=== PATIENT | male | born 1995 | race African-American/Black ===

== ENCOUNTER 2024-05-30 22:55 | Emergency (ER) | payer OTHER ==
[2024-05-30 23:20] LABS: #Basophils 0.04 10x3/uL (0.0-0.2); %Basophils 0.9 % (0.0-1.0); %Eosinophils 1.5 % (0.0-10.0); %Lymphocytes 37.8 % (21.0-51.0); %Monocytes 12.7 % (0.0-10.0); %Neutrophils 46.9 % (42.0-75.0); Hematocrit 42.5 % (42.0-52.0); Hemoglobin 14.1 g/dL (14.0-18.0); Mean Corpuscular HGB CONC 33.2 g/dL (32.0-36.0); Mean Corpuscular Hemoglobin 29.6 pg (27.0-31.0); Mean Corpuscular Volume 89.1 fL (78.0-98.0); Mean Platelet Volume 11.9 fL (7.4-10.4); Platelet Count 177 10x3/uL (130-400); RBC Distribution Width 12.7 % (11.5-14.5); Red Blood Cell (RBC) Count 4.77 mill/uL (4.70-6.10)
[2024-05-30 23:34] LABS: ALT (SGPT) 18 U/L (8-55); AST (SGOT) 26 U/L (5-34); Albumin 3.9 g/dL (3.5-5.0); Alkaline Phosphatase 60 U/L (40-110); Anion Gap 14 mmol/L (10-20); BUN (Urea Nitrogen) 11 mg/dL (8.9-20.6); Bilirubin, Total 0.6 mg/dL (0.2-1.2); Calc. Creatinine Clearance 0 mL/min (70-130); Calcium 9.1 mg/dL (7.8-10.44); Carbon Dioxide 21 mmol/L (22-29); Chloride 112 mmol/L (98-107); Estimated GFR 82; Glucose 99 mg/dL (70-105); Lipase 39 U/L (8-78); Potassium 3.9 mmol/L (3.5-5.1); Protein, Total 6.9 g/dL (6.0-8.3); Sodium 143 mmol/L (136-145)
[2024-05-30 23:40] LABS: Troponin I Less than 0.010 ng/mL (< 0.028)
[2024-05-31] MEDS ORDERED: Morphine 4 MG/ML VIAL ONE (01:52)
[2024-05-31] MEDS ORDERED: Ondansetron PF 4 MG/2 ML Vial ONE (01:52)
[2024-05-31] MEDS ORDERED: Aspirin Chewable 81 MG TAB ONE (01:53)
== END 2024-05-31 02:40 | disposition home or self-care (01) ==
LOC: ERS 22:55
DX: R07.9 Chest pain, unspecified (principal); I48.0 Paroxysmal atrial fibrillation
CPT/HCPCS: 71045; 80053; 83690; 83880; 84484; 85025; 93005; 94760; 96374; 96375; J2272; J2405

== ENCOUNTER 2024-07-25 21:18 | Emergency (ER) | payer OTHER ==
[~2024-07-25 21:18] MED LIST: Iopamidol-370 76% 500 ML MDV (1 ML CHARGE) ONE
[2024-07-25] MEDS ORDERED: Ondansetron PF 4 MG/2 ML Vial ONE (21:43)
[2024-07-25 22:03] LABS: #Basophils Less than 0.03 10x3/uL (0.0-0.2); #Eosinophils Less than 0.03 10x3/uL (0.0-0.7); %Basophils 0.4 % (0.0-1.0); %Eosinophils 0.4 % (0.0-10.0); %Lymphocytes 14.2 % (21.0-51.0); %Monocytes 10.5 % (0.0-10.0); %Neutrophils 74.1 % (42.0-75.0); ALT (SGPT) 15 U/L (8-55); AST (SGOT) 19 U/L (5-34); Albumin 4.1 g/dL (3.5-5.0); Alkaline Phosphatase 67 U/L (40-110); Anion Gap 11 mmol/L (10-20); BUN (Urea Nitrogen) 10 mg/dL (8.9-20.6); Bilirubin, Total 0.8 mg/dL (0.2-1.2); Calc. Creatinine Clearance 0 mL/min (70-130); Calcium 9.4 mg/dL (7.8-10.44); Carbon Dioxide 26 mmol/L (22-29); Chloride 110 mmol/L (98-107); Estimated GFR 98; Globulin 2.8 g/dL (2.4-3.5); Glucose 111 mg/dL (70-105); Hematocrit 44.4 % (42.0-52.0); Hemoglobin 14.7 g/dL (14.0-18.0); Lipase 65 U/L (8-78); Mean Corpuscular HGB CONC 33.1 g/dL (32.0-36.0); Mean Corpuscular Hemoglobin 29.2 pg (27.0-31.0); Mean Corpuscular Volume 88.1 fL (78.0-98.0); Mean Platelet Volume 12.1 fL (7.4-10.4); Platelet Count 179 10x3/uL (130-400); Potassium 3.5 mmol/L (3.5-5.1); Protein, Total 6.9 g/dL (6.0-8.3); RBC Distribution Width 12.8 % (11.5-14.5); Red Blood Cell (RBC) Count 5.04 mill/uL (4.70-6.10); Sodium 143 mmol/L (136-145)
[2024-07-25 22:08] LABS: Troponin I Less than 0.010 ng/mL (< 0.028)
[2024-07-25] MEDS ORDERED: Morphine 4 MG/ML VIAL ONE (22:13)
[2024-07-25] MEDS ORDERED: Droperidol 5 MG/2 ML VIAL ONE (22:13)
[2024-07-25] MEDS ORDERED: diphenhydrAMINE 50 MG/ML VIAL ONE (22:29)
[2024-07-25] MEDS ORDERED: Famotidine/PF 20 mg/2ml Vial ONE (22:29)
[2024-07-25] MEDS ORDERED: methylPREDNISolone Sod Succ 40 MG VIAL ONE (22:29)
== END 2024-07-26 01:00 | disposition home or self-care (01) ==
LOC: ERS 21:18
DX: R10.84 Generalized abdominal pain (principal); R11.2 Nausea with vomiting, unspecified; Z79.899 Other long term (current) drug therapy; Z95.1 Presence of aortocoronary bypass graft
CPT/HCPCS: 71045; 74177; 80053; 83690; 84484; 85025; 93005; 96374; 96375; J1200; J1790; J2272; J2405; J2919; J3490; Q9967

== ENCOUNTER 2024-08-26 18:30 | Emergency (ER) | payer OTHER, SELFPAY ==
[2024-08-26] MEDS ORDERED: Ketorolac Tromethamine 30 MG (1 mL) VIAL ONE (19:35)
== END 2024-08-26 20:18 | disposition home or self-care (01) ==
LOC: ERS 18:30
DX: S93.402A Sprain of unspecified ligament of left ankle, initial encounter (principal); S93.401A Sprain of unspecified ligament of right ankle, initial encounter; X50.1XXA Overexertion from prolonged static or awkward postures, initial encounter; Z95.1 Presence of aortocoronary bypass graft
CPT/HCPCS: 96372; 99283; J1885

== ENCOUNTER 2024-10-20 23:53 | Observation (INO) | payer SELFPAY ==
[2024-10-21 00:37] LABS: ALT (SGPT) 15 U/L (8-55); AST (SGOT) 25 U/L (5-34); Alkaline Phosphatase 71 U/L (40-110); Anion Gap 13 mmol/L (10-20); BUN (Urea Nitrogen) 9 mg/dL (8.9-20.6); Bilirubin, Total 0.4 mg/dL (0.2-1.2); Calc. Creatinine Clearance 0 mL/min (70-130); Calcium 9.2 mg/dL (7.8-10.44); Carbon Dioxide 21 mmol/L (22-29); Chloride 113 mmol/L (98-107); Estimated GFR 86; Globulin 3.6 g/dL (2.4-3.5); Glucose 108 mg/dL (70-105); Potassium 4.2 mmol/L (3.5-5.1); Protein, Total 7.6 g/dL (6.0-8.3); Sodium 143 mmol/L (136-145)
[2024-10-21 00:38] LABS: Troponin I Less than 0.010 ng/mL (< 0.028)
[2024-10-21] MEDS ORDERED: methylPREDNISolone Sod Succ 40 MG VIAL ONE (00:38)
[2024-10-21] MEDS ORDERED: diphenhydrAMINE 50 MG/ML VIAL ONE (00:38)
[2024-10-21] MEDS ORDERED: Famotidine/PF 20 mg/2ml Vial ONE (00:39)
[2024-10-21 00:43] LABS: #Basophils 0.04 10x3/uL (0.0-0.2); %Eosinophils 1.2 % (0.0-10.0); %Lymphocytes 39.9 % (21.0-51.0); %Monocytes 12.5 % (0.0-10.0); %Neutrophils 45.2 % (42.0-75.0); Hematocrit 42.8 % (42.0-52.0); Mean Corpuscular HGB CONC 32.7 g/dL (32.0-36.0); Mean Corpuscular Hemoglobin 28.9 pg (27.0-31.0); Mean Corpuscular Volume 88.4 fL (78.0-98.0); Mean Platelet Volume 11.6 fL (7.4-10.4); Platelet Count 159 10x3/uL (130-400); RBC Distribution Width 12.9 % (11.5-14.5); Red Blood Cell (RBC) Count 4.84 mill/uL (4.70-6.10)
[2024-10-21] MEDS ORDERED: Aspirin Chewable 81 MG TAB ONE (03:47)
[2024-10-21] MEDS ORDERED: Ondansetron PF 4 MG/2 ML Vial IVP PRN (04:15)
[2024-10-21] MEDS ORDERED: Acetaminophen 325 MG TAB PO PRN (04:15)
[2024-10-21] MEDS ORDERED: Nitroglycerin 0.4 MG TAB (25 Tab Bottle) SL PRN (04:15)
[2024-10-21 05:49] VITALS: BMI 25.4
[2024-10-21] MEDS: Lactated Ringer's 1,000 ML IV SCH (06:04)
[2024-10-21 07:54] LABS: Troponin I Less than 0.010 ng/mL (< 0.028)
[2024-10-21 08:23] LABS: Cardiac Risk 4.4 (Less than 4.5)
[2024-10-21 08:56] VITALS: TEMP 97.6
[2024-10-21] MEDS ORDERED: Iopamidol-370 76% 500 ML MDV (1 ML CHARGE) ONE (09:27)
[2024-10-21] MEDS: Enoxaparin 40 MG (0.4 mL) SYRINGE SC SCH (09:35)
[2024-10-21] MEDS: Metoprolol Tartrate 25 MG TAB PO SCH (09:35)
[2024-10-21] MEDS ORDERED: Regadenoson 0.4 MG/5 ML SYRINGE ONE (09:59)
[2024-10-21 10:45] LABS: Troponin I 0.011 ng/mL (< 0.028)
[2024-10-21 13:28] VITALS: BP 112/76
== END 2024-10-21 15:19 | disposition home or self-care (01) ==
LOC: ERS 23:53 → OBS 10-21 04:08
PROVIDERS: ADMIT Internal Medicine; ATTEND Family Medicine
PROC: B246ZZZ Ultrasonography of Right and Left Heart (ICD-10-PCS; principal; 2024-10-21)
DX: R55 Syncope and collapse (principal); R07.9 Chest pain, unspecified; I10 Essential (primary) hypertension; E78.5 Hyperlipidemia, unspecified; I48.91 Unspecified atrial fibrillation; Z95.1 Presence of aortocoronary bypass graft; Z91.041 Radiographic dye allergy status
CPT/HCPCS: 36415; 71045; 71275; 74174; 78452; 80053; 80061; 83690; 84484; 85025; 93005; 93017; 93306; 96372; 96374; A9502; G0378; J1200; J1650; J2785; J2919; J3490; Q9967

== ENCOUNTER 2025-05-27 09:26 | Emergency (ER) | payer SELFPAY ==
[2025-05-27 10:12] LABS: #Basophils Less than 0.03 10x3/uL (0.0-0.2); #Eosinophils Less than 0.03 10x3/uL (0.0-0.7); #Monocytes 0.28 10x3/uL (0.11-0.59); #Neutrophils 1.60 10x3/uL (1.40-6.50); %Basophils 0.7 % (0.0-1.0); %Eosinophils 0.7 % (0.0-10.0); %Lymphocytes 32.6 % (21.0-51.0); %Monocytes 9.8 % (0.0-10.0); %Neutrophils 56.2 % (42.0-75.0); Hematocrit 47.8 % (42.0-52.0); Hemoglobin 15.5 g/dL (14.0-18.0); Mean Corpuscular Hemoglobin 28.1 pg (27.0-31.0); Mean Corpuscular Volume 86.8 fL (78.0-98.0); Platelet Count 202 10x3/uL (130-400); Red Blood Cell (RBC) Count 5.51 mill/uL (4.70-6.10); White Blood Cell (WBC) Count 2.85 10x3/uL (4.8-10.8)
[2025-05-27 10:29] LABS: ALT (SGPT) 17 U/L (Less than 45); AST (SGOT) 21 U/L (11-34); Albumin 4.0 g/dL (3.1-4.5); Alkaline Phosphatase 75 U/L (40-110); Anion Gap 14 mmol/L (10-20); BUN (Urea Nitrogen) 12 mg/dL (8.9-20.6); Bilirubin, Total 0.7 mg/dL (0.3-1.2); CK (CPK) 99 U/L (30-200); Calc. Creatinine Clearance 0 mL/min (70-130); Calcium 8.9 mg/dL (7.8-10.44); Carbon Dioxide 22 mmol/L (22-29); Chloride 110 mmol/L (98-107); Globulin 3.0 g/dL (2.4-3.5); Glucose 99 mg/dL (70-105); Lipase 39 U/L (8-78); Magnesium 2.0 mg/dL (1.6-2.6); Potassium 4.1 mmol/L (3.5-5.1); Sodium 142 mmol/L (136-145)
== END 2025-05-27 12:08 | disposition home or self-care (01) ==
LOC: ERS 09:26
DX: R00.2 Palpitations (principal); I48.91 Unspecified atrial fibrillation; Z79.01 Long term (current) use of anticoagulants; Z95.5 Presence of coronary angioplasty implant and graft
CPT/HCPCS: 71045; 80053; 82550; 83690; 83735; 84443; 84484; 85025; 85379; 93005; 94760

== ENCOUNTER 2025-09-14 09:53 | Inpatient (IN) | payer SELFPAY ==
[2025-09-14] MEDS ORDERED: Ondansetron PF 4 MG/2 ML Vial ONE (10:09)
[2025-09-14 10:13] LABS: #Basophils 0.04 10x3/uL (0.0-0.2); #Eosinophils 0.07 10x3/uL (0.0-0.7); #Monocytes 0.37 10x3/uL (0.11-0.59); #Neutrophils 1.57 10x3/uL (1.40-6.50); %Basophils 1.2 % (0.0-1.0); %Eosinophils 2.2 % (0.0-10.0); %Lymphocytes 36.4 % (21.0-51.0); %Monocytes 11.4 % (0.0-10.0); %Neutrophils 48.5 % (42.0-75.0); Hematocrit 45.0 % (42.0-52.0); Hemoglobin 14.7 g/dL (14.0-18.0); Mean Corpuscular Hemoglobin 28.2 pg (27.0-31.0); Mean Corpuscular Volume 86.2 fL (78.0-98.0); Platelet Count 173 10x3/uL (130-400); Red Blood Cell (RBC) Count 5.22 mill/uL (4.70-6.10); White Blood Cell (WBC) Count 3.24 10x3/uL (4.8-10.8)
[2025-09-14 10:28] LABS: Lipase 43 U/L (8-78)
[2025-09-14 10:31] LABS: Acetaminophen Less than 10 mcg/mL (Less than 10); Salicylate Less than 8.0 mg/dL (Less than 8.0)
[2025-09-14 10:32] LABS: ALT (SGPT) 16 U/L (Less than 45); AST (SGOT) 24 U/L (11-34); Albumin 4.0 g/dL (3.1-4.5); Alkaline Phosphatase 78 U/L (40-110); Anion Gap 14 mmol/L (10-20); BUN (Urea Nitrogen) 14 mg/dL (8.9-20.6); Bilirubin, Total 0.7 mg/dL (0.3-1.2); Calc. Creatinine Clearance 0 mL/min (70-130); Calcium 9.1 mg/dL (7.8-10.44); Carbon Dioxide 20 mmol/L (22-29); Chloride 112 mmol/L (98-107); Globulin 2.6 g/dL (2.4-3.5); Glucose 98 mg/dL (70-105); Potassium 4.4 mmol/L (3.5-5.1); Sodium 142 mmol/L (136-145)
[2025-09-14 11:59] LABS: Glucose, Urine (Dipstick) Negative (Negative); Leukocyte Negative (Negative); Protein, Urine (Dipstick) Negative (Neg-Trace); Specific Gravity, Urine 1.025 (1.005-1.030)
[2025-09-14 12:07] LABS: Cocaine Metabolite Screen Negative (Negative); THC/Cannabinoid Screen Negative (Negative); Tricyclic Screen Negative (Negative)
[2025-09-14 12:11] LABS: Bacteria/HPF None Seen HPF (None Seen); CAUTI Indications for Culture Pelvic or flank pain; RBC/HPF 0-3 HPF (0-3); WBC/HPF 0-3 HPF (0-3)
[2025-09-14 12:13] LABS: Urine Culture Reflex No No
[2025-09-14] MEDS ORDERED: Ketorolac Tromethamine 30 MG (1 mL) VIAL IVP PRN (13:15)
[2025-09-14] MEDS ORDERED: Melatonin 3 MG TAB PO PRN (13:15)
[2025-09-14] MEDS ORDERED: Nitroglycerin 0.4 MG TAB (25 Tab Bottle) SL PRN (13:20)
[2025-09-14 16:50] VITALS: BMI 27.2
[2025-09-14] MEDS: Enoxaparin 40 MG (0.4 mL) SYRINGE SC SCH (17:22)
[2025-09-14] MEDS: Ondansetron PF 4 MG/2 ML Vial IVP PRN (17:22)
[2025-09-14] MEDS: Famotidine 20 MG TAB PO SCH (20:31)
[2025-09-15 06:10] LABS: #Basophils 0.04 10x3/uL (0.0-0.2); #Eosinophils 0.03 10x3/uL (0.0-0.7); #Monocytes 0.44 10x3/uL (0.11-0.59); #Neutrophils 3.06 10x3/uL (1.40-6.50); %Basophils 0.9 % (0.0-1.0); %Eosinophils 0.6 % (0.0-10.0); %Lymphocytes 23.7 % (21.0-51.0); %Monocytes 9.4 % (0.0-10.0); %Neutrophils 65.2 % (42.0-75.0); Hematocrit 46.9 % (42.0-52.0); Hemoglobin 14.8 g/dL (14.0-18.0); Mean Corpuscular Hemoglobin 28.0 pg (27.0-31.0); Mean Corpuscular Volume 88.7 fL (78.0-98.0); Platelet Count 182 10x3/uL (130-400); Red Blood Cell (RBC) Count 5.29 mill/uL (4.70-6.10); White Blood Cell (WBC) Count 4.69 10x3/uL (4.8-10.8)
[2025-09-15 06:24] LABS: Anion Gap 15 mmol/L (10-20); BUN (Urea Nitrogen) 11 mg/dL (8.9-20.6); Calc. Creatinine Clearance 126 mL/min (70-130); Calcium 9.5 mg/dL (7.8-10.44); Carbon Dioxide 21 mmol/L (22-29); Cardiac Risk 4.4 (Less than 4.5); Chloride 109 mmol/L (98-107); Cholesterol 247 mg/dl (< 200 Desired); Glucose 89 mg/dL (70-105); HDL Cholesterol 56 mg/dL (>60 Neg Risk); LDL Cholesterol, Calculated 172 mg/dL; Potassium 4.1 mmol/L (3.5-5.1); Sodium 141 mmol/L (136-145); Triglycerides 95 mg/dL (Less than 150)
[2025-09-15] MEDS: Aspirin 81 mg Enteric Coated Tablet PO SCH (08:44)
[2025-09-15] MEDS: Enoxaparin 40 MG (0.4 mL) SYRINGE SC SCH (08:44)
[2025-09-15] MEDS: Acetaminophen 325 MG TAB PO PRN (20:52)
[2025-09-16 12:43] VITALS: TEMP 98.2
[2025-09-16 12:44] VITALS: BP 108/64
[2025-09-17] MEDS ORDERED: FLU (Fluarix Triv) 25-26 (6MOS UP)/PF 45 MCG/0.5 ML Syringe IM ONE (09:00)
== END 2025-09-16 15:01 | disposition home or self-care (01) | DRG 313 ==
LOC: ERS 09:53 → ERHOLD 12:57 → OBS 15:55 → OBSVTOIN 09-15 13:50
PROVIDERS: ADMIT Family Medicine; ATTEND Internal Medicine
DX: R07.89 Other chest pain (principal); I42.2 Other hypertrophic cardiomyopathy; Z91.041 Radiographic dye allergy status; Z79.899 Other long term (current) drug therapy; Z98.890 Other specified postprocedural states; Z95.1 Presence of aortocoronary bypass graft; F31.9 Bipolar disorder, unspecified; Z79.82 Long term (current) use of aspirin
CPT/HCPCS: 36415; 71045; 80048; 80053; 80061; 80306; 80307; 81001; 83690; 84443; 84484; 85025; 85379; 93005; 93306; 96372; 96374; 96375; 96376; G0378; J1650; J2272; J2405; Q0162